=== PATIENT | male | born 1985 | race Caucasian/White ===

== ENCOUNTER → 2016-09-22 | Outpatient (CLI) | payer OTHER | LOC: LABWHC1 16:16 | PROVIDERS: ATTEND Psychiatry & Neurology Psychiatry | DX: F31.31 Bipolar disorder, current episode depressed, mild (principal) | CPT/HCPCS: 36415; 80164; 84450; 84460 ==

== ENCOUNTER 2016-09-26 00:51 | Inpatient (IN) | payer OTHER ==
[2016-09-26] MEDS ORDERED: SODIUM CHLORIDE 0.9% 1,000 ML IV STA (01:34)
[2016-09-26] MEDS ORDERED: ACTIVATED CHARCOAL 50 GM/240 ML BOTTLE PO STA (01:36)
[2016-09-26] MEDS ORDERED: ACETYLCYSTEINE 6,000 MG/30 ML VIAL PO ONE (01:36)
[2016-09-26 02:03] LABS: Basophils % (A) 0 %; CH 31.5; CHCM 33.5; Eosinophils # (A) 0.2 k/uL (0-0.7); Eosinophils % (A) 4 %; HCT 48.1 % (39.0-53.0); HDW 2.24; HGB 15.5 gm/dL (13.0-17.5); Luc # (Auto) 0.21; Luc % (Auto) 3; Lymphocytes # (A) 2.8 k/uL (1.0-4.8); Lymphocytes % (A) 42 %; MCH 30.4 pg (25.0-35.0); MCHC 32.2 g/dL (31.0-37.0); MCV 94.5 fL (80.0-100.0); Mean Platelet Volume 7.3; Monocytes # (A) 0.4 k/uL (0-1.0); Monocytes % (A) 6 %; Neutrophils # (A) 2.9 k/uL (1.3-7.7); Neutrophils % (A) 44 %; RBC 5.09 m/uL (4.30-5.90); RDW 13.4 % (11.5-15.5); WBC 6.6 k/uL (3.8-10.6); WBC (Perox) 6.58
[2016-09-26 02:13] LABS: INR 1.2 (<1.1); Prothrombin Time 11.5 sec (9.0-12.0)
[2016-09-26 02:14] LABS: ALT 35 U/L (21-72); AST 29 U/L (17-59); Alcohol 12 mg/dL; Alkaline Phosphatase 32 U/L (38-126); Anion Gap 12 mmol/L; Blood Urea Nitrogen 22 mg/dL (9-20); Calcium 9.1 mg/dL (8.4-10.2); Carbon Dioxide 22 mmol/L (22-30); Chloride 108 mmol/L (98-107); Glucose 88 mg/dL (74-99); Non-African American GFR(MDRD) >60 (>60 ml/min/1.73 sqM); Potassium 4.3 mmol/L (3.5-5.1); Salicylate <1.0 mg/dL; Sodium 142 mmol/L (137-145); Total Bilirubin 0.3 mg/dL (0.2-1.3); Total Protein 6.6 g/dL (6.3-8.2)
[2016-09-26] MEDS ORDERED: ONDANSETRON 4 MG/2 ML VIAL IVP STA ×2 (02:47→04:50)
[2016-09-26] MEDS ORDERED: NALOXONE 0.4 MG/ML 1 ML VIAL IV PRN (03:29)
--- NOTE | 2016-09-26 03:36 | ED ---
Psych HPI - General Chief Complaint: Psychiatric Symptoms Stated Complaint: Mental Health Time Seen by Provider: 09/26/16 00:52 Source: patient Mode of arrival: EMS Limitations: no limitations - History of Present Illness Initial Comments: This patient is 31-year-old man who comes in to be evaluated after he had attempted to overdose. Patient is brought by friend who states that she noted a Facebook posting which indicated some suicidal thoughts. The patient states that he had taken about 100 of the 500 mg Tylenol tablets right around 10:30. The patient denies any abdominal or gastrointestinal symptoms. MD Complaint: suicidal ideation, feels depressed -: hour(s) Associated Psychiatric Symptoms: depression, suicidal ideation Quality: getting worse Worsens With: alcohol Context: recent alcohol abuse, significant life stressor Associated Symptoms: denies other symptoms - Related Data Home Medications Medication Instructions Recorded Confirmed Acetaminophen Tab [Tylenol] 650 mg PO Q4H PRN 12/22/14 12/22/14 Mag Hydrox/Al Hydrox/Simeth 7,200 mg PO Q4H PRN 12/22/14 12/22/14 [Maalox] Magnesium Hydroxide [Milk of 2,400 mg PO DAILY PRN 12/22/14 12/22/14 Magnesia Concentrate] Previous Rx's Medication Instructions Recorded Divalproex ER [Depakote ER] 1,000 mg PO HS #30 tab.er.24h 12/24/14 FLUoxetine HCL [PROzac] 20 mg PO DAILY #30 cap 12/24/14 Paliperidone [Invega] 9 mg PO DAILY #30 tab.er.24 12/24/14 clonazePAM [KlonoPIN] 0.25 mg PO HS #30 tab 12/24/14 Allergies Allergy/AdvReac Type Severity Reaction Status Date / Time hydromorphone HCl Allergy Rash/Hives Verified 09/26/16 01:21 [From Dilaudid] morphine Allergy Rash/Hives Verified 09/26/16 01:21 Review of Systems ROS Statement: Those systems with pertinent positive or pertinent negative responses have been documented in the HPI. ROS Other: All systems not noted in ROS Statement are negative. Constitutional: Denies: fever, chills Eyes: Denies: vision change Respiratory: Denies: cough, dyspnea Cardiovascular: Denies: chest pain, edema, syncope Gastrointestinal: Denies: abdominal pain, nausea, vomiting Genitourinary: Denies: dysuria, hematuria Musculoskeletal: Denies: back pain Skin: Denies: rash Neurological: Denies: headache, weakness, numbness Psychiatric: Reports: depression, suicidal thoughts Past Medical History Past Medical History: No Reported History History of Any Multi-Drug Resistant Organisms: None Reported, MRSA Date of last positivie culture/infection: 2012 MDRO Source:: Bilaterial great toes Past Surgical History: Orthopedic Surgery Additional Past Surgical History / Comment(s): Left elbow repair 2003 Past Anesthesia/Blood Transfusion Reactions: No Reported Reaction Past Psychological History: Anxiety, Depression, Schizophrenia Smoking Status: Former smoker Past Alcohol Use History: None Reported Past Drug Use History: None Reported - Past Family History Mother Family Medical History: Cancer General Exam Limitations: no limitations General appearance: alert, in no apparent distress Head exam: Present: atraumatic, normocephalic Eye exam: Present: normal appearance. Absent: scleral icterus, conjunctival injection ENT exam: Present: normal oropharynx Neck exam: Present: normal inspection Respiratory exam: Present: normal lung sounds bilaterally. Absent: respiratory distress, wheezes, rales, rhonchi, stridor Cardiovascular Exam: Present: regular rate, normal rhythm, normal heart sounds GI/Abdominal exam: Present: soft. Absent: distended, tenderness, guarding, rebound, rigid, normal bowel sounds Extremities exam: Present: normal inspection, normal capillary refill. Absent: pedal edema, calf tenderness Neurological exam: Present: alert Psychiatric exam: Present: normal affect, normal mood, suicidal ideation. Absent: anxious, flat affect, manic, homicidal ideation Skin exam: Present: warm, dry, intact, normal color. Absent: rash Course Vital Signs 09/26/16 09/26/16 09/26/16 01:15 02:25 02:32 Temperature 97.2 F L Pulse Rate 88 86 Respiratory 18 18 20 Rate Blood Pressure 118/53 123/56 O2 Sat by Pulse 95 98 Oximetry 09/26/16 09/26/16 09/26/16 04:27 04:59 05:00 Temperature 97.6 F Pulse Rate 73 61 77 Respiratory 16 19 Rate Blood Pressure 107/51 O2 Sat by Pulse 97 Oximetry Medical Decision Making - Medical Decision Making Patient is 31-year-old man who presents approximately 2 hours after taking toxic level of Tylenol. Patient was given empiric treatment with N- acetylcysteine based on the ingestion level. Also dose of activated charcoal. After taking this she did develop nausea and vomiting, and the acetylcysteine was given IV. Patient be admitted for further treatment. I discussed the case with both the admitting physician and the board of directors. - Lab Data Result diagrams: 09/26/16 06:09 09/26/16 06:09 Lab Results 09/26/16 09/26/16 09/26/16 Range/Units 01:43 01:43 01:43 WBC 6.6 (3.8-10.6) k/uL RBC 5.09 (4.30-5.90) m/uL Hgb 15.5 (13.0-17.5) gm/dL Hct 48.1 (39.0-53.0) % MCV 94.5 (80.0-100.0) fL MCH 30.4 (25.0-35.0) pg MCHC 32.2 (31.0-37.0) g/dL RDW 13.4 (11.5-15.5) % Plt Count 158 (150-450) k/uL Neutrophils % 44 % Lymphocytes % 42 % Monocytes % 6 % Eosinophils % 4 % Basophils % 0 % Neutrophils # 2.9 (1.3-7.7) k/uL Lymphocytes # 2.8 (1.0-4.8) k/uL Monocytes # 0.4 (0-1.0) k/uL Eosinophils # 0.2 (0-0.7) k/uL Basophils # 0.0 (0-0.2) k/uL PT 11.5 (9.0-12.0) sec INR 1.2 (<1.1) Sodium 142 (137-145) mmol/L Potassium 4.3 (3.5-5.1) mmol/L Chloride 108 H (98-107) mmol/L Carbon Dioxide 22 (22-30) mmol/L Anion Gap 12 mmol/L BUN 22 H (9-20) mg/dL Creatinine 1.00 (0.66-1.25) mg/dL Est GFR (MDRD) Af Amer >60 (>60 ml/min/1.73 sqM) Est GFR (MDRD) Non-Af >60 (>60 ml/min/1.73 sqM) Glucose 88 (74-99) mg/dL Calcium 9.1 (8.4-10.2) mg/dL Total Bilirubin 0.3 (0.2-1.3) mg/dL AST 29 (17-59) U/L ALT 35 (21-72) U/L Alkaline Phosphatase 32 L (38-126) U/L Total Protein 6.6 (6.3-8.2) g/dL Albumin 3.8 (3.5-5.0) g/dL Salicylates <1.0 mg/dL Acetaminophen 152.0 H* ug/mL Serum Alcohol 12 mg/dL - EKG Data -: EKG Interpreted by Me EKG shows normal: sinus rhythm, axis (Normal), intervals (Normal), QRS complexes (Normal), ST-T waves (Home) Rate: normal (Rate 85 bpm) Critical Care Time Critical Care Time: Yes (35 minutes) Disposition Clinical Impression: Attempted suicide, Tylenol overdose Disposition: ADMITTED IP TO THIS [facility] Condition: Serious
[2016-09-26] MEDS ORDERED: ACETYLCYSTEINE IV ONE ×4 (04:00→09:30)
[2016-09-26] MEDS ORDERED: DEXTROSE 5% IV ONE ×4 (04:00→09:30)
[2016-09-26] MEDS ORDERED: WATER IV ONE ×4 (04:00→09:30)
[2016-09-26] MEDS ORDERED: ONDANSETRON 4 MG/2 ML VIAL IVP PRN (04:50)
[2016-09-26 05:07] LABS: Glucose,Whole Blood 121 mg/dL (75-99)
[2016-09-26 05:17] VITALS: BMI 28.4
[2016-09-26] MEDS: SODIUM CHLORIDE 0.9% 1,000 ML IV SCH ×3 (05:23→20:25)
[2016-09-26 06:25] LABS: Basophils % (A) 1 %; CH 31.4; Eosinophils # (A) 0.1 k/uL (0-0.7); Eosinophils % (A) 2 %; HCT 42.8 % (39.0-53.0); HDW 2.33; HGB 14.2 gm/dL (13.0-17.5); Luc # (Auto) 0.22; Luc % (Auto) 4; Lymphocytes # (A) 3.2 k/uL (1.0-4.8); Lymphocytes % (A) 53 %; MCH 31.7 pg (25.0-35.0); MCHC 33.2 g/dL (31.0-37.0); MCV 95.5 fL (80.0-100.0); Mean Platelet Volume 8.2; Monocytes # (A) 0.3 k/uL (0-1.0); Monocytes % (A) 5 %; Neutrophils # (A) 2.2 k/uL (1.3-7.7); Neutrophils % (A) 36 %; RBC 4.48 m/uL (4.30-5.90); RDW 13.4 % (11.5-15.5); WBC 6.1 k/uL (3.8-10.6); WBC (Perox) 6.32
[2016-09-26 06:35] LABS: Anion Gap 16 mmol/L; Blood Urea Nitrogen 17 mg/dL (9-20); Calcium 7.9 mg/dL (8.4-10.2); Carbon Dioxide 20 mmol/L (22-30); Chloride 109 mmol/L (98-107); Glucose 94 mg/dL (74-99); Magnesium 1.9 mg/dL (1.6-2.3); Non-African American GFR(MDRD) >60 (>60 ml/min/1.73 sqM); Phosphorous 3.3 mg/dL (2.5-4.5); Sodium 145 mmol/L (137-145)
[2016-09-26] MEDS: PANTOPRAZOLE 40 MG/10 ML VIAL IV SCH (09:17)
[2016-09-26] MEDS: FLUoxetine HCL 20 MG CAP PO SCH (09:17)
--- NOTE | 2016-09-26 11:35 | P.CNPUL ---
History of Present Illness Consult date: 09/26/16 Requesting physician: Edson Dunn Reason for consult: other (Acute acetaminophen overdose/toxicity.) Chief complaint: Tylenol overdose History of present illness: This is a 31-year-old white male with history of depression, and multiple attempts of suicide in the past, multiple admissions to the psychiatric pur[facility], patient posted on his Facebook that he has taken significant amount of Tylenol roughly about 100 tablets of 500 mg around 10:30 PM, and he was trying to commit suicide. Patient was brought in by his friend who noted the Facebook posting, and felt that the patient was clearly suicidal. Upon arrival to the ER , patient had no evidence of abdominal pain, slightly nauseated, and no other GI symptoms. His acetaminophen level was 152, patient received activated charcoal were in he developed nausea and vomiting, and he was started on an acetylcysteine as recommended by the poison control following the protocol. Patient was then admitted to the ICU, and I saw him on consultation. Presently the patient is doing well, denies any specific complaints, follow-up acetaminophen level this morning was 189.6, his liver enzymes upon presentation were relatively normal. Follow-up liver profile is pending. Drug screen otherwise was negative his serum alcohol level was 12. Valproic acid level was subtherapeutic. Presently the patient denies any headaches, no blurred vision, no dizziness. No chest pain no cough no wheezing no nausea no vomiting no abdominal pain no melena no hematemesis no dysuria and no frequency no urgency. Patient clearly stated to me that he is quite depressed, and he will likely do it again. Patient will be placed on suicidal precautions, and we'll arrange for psychiatric consultation. Review of Systems 14 point review of systems were obtained. Refer to pertinent positives and negatives as per HPI Past Medical History Past Medical History: No Reported History Additional Past Medical History / Comment(s): History of depression History of Any Multi-Drug Resistant Organisms: None Reported, MRSA Date of last positivie culture/infection: 2012 MDRO Source:: Bilaterial great toes Past Surgical History: Orthopedic Surgery Additional Past Surgical History / Comment(s): Left elbow repair 2003 Past Anesthesia/Blood Transfusion Reactions: No Reported Reaction Past Psychological History: Anxiety, Depression, Schizophrenia Smoking Status: Former smoker Past Alcohol Use History: None Reported Past Drug Use History: None Reported - Past Family History Mother Family Medical History: Cancer Medications and Allergies Home Medications Medication Instructions Recorded Confirmed Type Acetaminophen Tab [Tylenol] 650 mg PO Q4H PRN 12/22/14 12/22/14 History Mag Hydrox/Al Hydrox/Simeth 7,200 mg PO Q4H PRN 12/22/14 12/22/14 History [Maalox] Magnesium Hydroxide [Milk of 2,400 mg PO DAILY PRN 12/22/14 12/22/14 History Magnesia Concentrate] Allergies Allergy/AdvReac Type Severity Reaction Status Date / Time hydromorphone HCl Allergy Rash/Hives Verified 09/26/16 01:21 [From Dilaudid] morphine Allergy Rash/Hives Verified 09/26/16 01:21 Physical Exam Vitals: Vital Signs Temp Pulse Resp BP Pulse Ox 09/26/16 11:00 61 17 102/52 95 09/26/16 10:00 61 25 H 102/71 09/26/16 09:30 58 L 21 102/71 91 L 09/26/16 09:00 55 L 19 102/71 94 L 09/26/16 08:30 59 L 12 112/62 95 09/26/16 08:00 58 L 12 118/64 96 09/26/16 07:40 97.6 F 55 L 24 118/64 98 09/26/16 07:20 54 L 20 118/64 99 09/26/16 07:00 82 22 140/79 09/26/16 06:40 63 25 H 140/79 96 09/26/16 06:20 63 29 H 140/79 97 09/26/16 06:00 90 25 H 123/66 97 09/26/16 05:40 63 21 123/66 98 09/26/16 05:20 43 L 20 123/66 98 09/26/16 05:10 97.7 F 67 34 H 123/66 98 09/26/16 05:00 77 19 09/26/16 04:59 61 09/26/16 04:27 97.6 F 73 16 107/51 97 Intake and Output 09/25/16 09/26/16 09/26/16 22:59 06:59 14:59 Intake Total 250 950 Output Total 400 Balance 250 550 Intake: IV 250 750 Dextrose 5% in Water 500 250 ml @ 125 mls/hr IV . Q4H11M ONE with Acetylcysteine IV 4,200 mg Rx#:[id number] Sodium Chloride 0.9% 1, 250 500 000 ml @ 125 mls/hr IV . Q8H [facility] Rx#:[id number] Intake, IV Titration 200 Amount Acetylcysteine IV 12,600 200 mg In Dextrose 5% in Water 200 ml @ 200 mls/hr IV ONCE ONE Rx#: [id number] Output: Urine 400 Other: Voiding Method Urinal Toilet Urinal Weight 87.3 kg 87.3 kg Patient Weight 09/27/16 06:59 Weight 87.3 kg Physical Exam: Revealed a 31-year-old in no distress HEENT:[Neck is supple.] [No neck masses.] [No thyromegaly.] [No JVD.] Chest: [Clear throughout, no crackles, no rhonchi, no wheezes.] Cardiac Exam: [Normal S1 and S2, no S3 gallop, no murmur.] Abdomen: [Soft, nontender, no megaly, no rebound, no guarding, normal bowel sounds.] Extremities: [No clubbing, no edema, no cyanosis.] Neurological Exam: [No focal neurologic deficit.] Patient clearly stated that he is depressed and doesn't mind psychiatric evaluation. Results - Laboratory Findings CBC and BMP: 09/26/16 06:09 09/26/16 06:09 PT/INR, D-dimer PT 11.5 sec (9.0-12.0) 09/26/16 01:43 INR 1.2 (<1.1) 09/26/16 01:43 Abnormal lab findings: Abnormal Labs 09/26/16 09/26/16 09/26/16 05:04 06:09 06:09 Plt Count 138 L Chloride 109 H Carbon Dioxide 20 L POC Glucose (mg/dL) 121 H Calcium 7.9 L Acetaminophen 09/26/16 06:09 Plt Count Chloride Carbon Dioxide POC Glucose (mg/dL) Calcium Acetaminophen 189.6 H* Assessment and Plan Plan: Impression: 1 acute acetaminophen toxicity secondary to suicidal attempt. 2 major affective disorder and suicidal ideations. Recommendation: We'll continue treatment as per protocol, patient is presently on an acetylcysteine IV infusion, he will remain on suicidal precautions, and we 'll arrange for psychiatric evaluation on the patient. Once the patient is medically cleared, I would recommend referring the patient to psychiatric admission. At this point we'll continue to follow the ICU and continue to follow precautions for potential suicidal attempts Time with Patient: Greater than 30
[2016-09-26 13:43] LABS: Acetaminophen 51.8 ug/mL
--- NOTE | 2016-09-26 16:47 | CONS ---
DATE OF CONSULTATION: REASON FOR CONSULTATION: Status post suicidal attempt. HISTORY OF PRESENT ILLNESS: Patient is 31 single male with history of bipolar disorder and had multiple suicidal attempts in the past, presented to the ER after he took overdose of Tylenol. Patient posted on his Facebook that he will try to commit suicide and when his friend noted this on the Facebook he wanted his house and brought the patient in. When the patient did arrive to the ER, he acetaminophen level was 152. Patient was transferred to the ICU. I saw the patient and his parents all at his bedside. They stated that the patient has been severely depressed for the last couple of months, even he did miss his appointment to see his outpatient psychiatrist Dr. Castro. He was seen last time in June 2016. His current psychotropic medications are Prozac 40 mg daily and Depakote extended-release 1500 mg at bedtime. Today patient stated that he is willing to be admitted to the inpatient unit, but he was concerned about being in our facility, as he claims that he did have bad experience during his last hospitalization in 2013. When I did ask the patient if he has been compliant with medication, he said yes but I am not sure about my diagnosis. At the time of his admission, Depakote level was 21.2 and it does show that he has been noncompliant with medication as prescribed. His serum alcohol 12. His urine drug screen is negative. Today patient complaining of feeling hopeless, helpless, feeling suicidal with different plans, feeling worthless and useless, poor concentration, also, he did experience high anxiety. According to him he has been drinking to "help my depression." Past Psychiatric History: Patient has multiple suicidal attempts in the past with multiple inpatient psych hospitalizations. His last inpatient psych hospitalization was in 2013. His previous diagnosis is schizoaffective disorder, bipolar type, versus polysubstance abuse including alcohol and cannabis and opiates. Patient has been on the same combination of medication for the last year and as I mentioned before, he has been seen by Dr. Castro. Substance abuse history: Currently patient did admit that he has been drinking but according to him, just when he is depressed. He denied any withdrawal seizure or DT. H urine drug screen is negative. ALLERGY TO HYDROMORPHONE AND MORPHINE. Brief social history: Patient was raised by both parents. He is the youngest of 4. He has never been . As I mentioned before, he has long history of mental illness with several psychiatric hospitalization. There is no children. He denied any current legal program. MENTAL STATUS EXAMINATION: Patient is alert, attentive, he stated, feeling hopeless, helpless, with suicidal ideation, however, he did not have any specific plan. He denied having any hallucination. There is no sign of psychosis. There is no sign of rojelio. He was having difficulty to agree to be transferred to our unit. However, he stated that if it is not possible to be transferred to outside unit he will be willing to come to [facility]. There is no aggression or agitation. DIAGNOSES: 1. Bipolar disorder, depressed, rule out schizoaffective disorder, depressed type. 2. Alcohol use disorder. PLAN: I do recommend to transfer the patient to inpatient mental unit, when he is medically cleared.
[2016-09-26] MEDS: clonazePAM 0.5 MG TAB PO SCH (20:24)
[2016-09-26] MEDS: DIVALPROEX ER 500 MG TAB.ER.24H PO SCH (20:24)
[2016-09-27] MEDS: SODIUM CHLORIDE 0.9% 1,000 ML IV SCH ×3 (03:02→20:46)
[2016-09-27 06:43] VITALS: RESP 16
[2016-09-27 09:44] LABS: Basophils % (A) 0 %; CH 31.1; CHCM 32.4; Eosinophils # (A) 0.1 k/uL (0-0.7); Eosinophils % (A) 3 %; HCT 40.8 % (39.0-53.0); HDW 2.33; HGB 13.5 gm/dL (13.0-17.5); Luc # (Auto) 0.09; Luc % (Auto) 2; Lymphocytes # (A) 2.6 k/uL (1.0-4.8); Lymphocytes % (A) 55 %; MCHC 33.2 g/dL (31.0-37.0); MCV 96.5 fL (80.0-100.0); Mean Platelet Volume 7.7; Monocytes # (A) 0.2 k/uL (0-1.0); Monocytes % (A) 5 %; Neutrophils # (A) 1.6 k/uL (1.3-7.7); Neutrophils % (A) 35 %; RBC 4.23 m/uL (4.30-5.90); RDW 13.4 % (11.5-15.5); WBC 4.6 k/uL (3.8-10.6); WBC (Perox) 4.92
[2016-09-27 10:01] LABS: ALT 29 U/L (21-72); AST 20 U/L (17-59); Acetaminophen <10.0 ug/mL; Alkaline Phosphatase <20 U/L (38-126); Anion Gap 8 mmol/L; Blood Urea Nitrogen 13 mg/dL (9-20); Calcium 8.2 mg/dL (8.4-10.2); Carbon Dioxide 23 mmol/L (22-30); Chloride 112 mmol/L (98-107); Glucose 98 mg/dL (74-99); Magnesium 1.9 mg/dL (1.6-2.3); Non-African American GFR(MDRD) >60 (>60 ml/min/1.73 sqM); Phosphorous 3.2 mg/dL (2.5-4.5); Potassium 4.3 mmol/L (3.5-5.1); Sodium 143 mmol/L (137-145); Total Bilirubin 0.4 mg/dL (0.2-1.3); Total Protein 5.4 g/dL (6.3-8.2)
[2016-09-27] MEDS: PANTOPRAZOLE 40 MG/10 ML VIAL IV SCH (10:16)
[2016-09-27] MEDS: FLUoxetine HCL 20 MG CAP PO SCH (10:16)
[2016-09-27 10:28] LABS: Manual Review Performed; RBC Morphology Normal
--- NOTE | 2016-09-27 11:54 | HP ---
DATE OF ADMISSION: Chief complaint is Tylenol overdose. HISTORY OF PRESENT ILLNESS: Mr. Jaimes is a 31-year-old male with history of depression and approximately about 6 prior suicide attempts and multiple admissions to the inpatient psychiatric. Was brought to the hospital for acute Tylenol overdose. Apparently, patient posted on his Facebook page that he has taken a significant amount of Tylenol roughly about 100 tablet of 500 mg around 10:30 p.m. and he was trying to commit suicide. Patient was brought in by his friend. Patient was given activated charcoal and he threw up most of his pills. Patient was started on ( ) recommended by the Poison Control. His acetaminophen level was 152 on admission. Patient was admitted to the hospital in the ICU. Drug screen, otherwise, was negative except his alcohol was 12. Currently, patient denied any complaints of chest pain or short of breath. No headache or dizziness or lightheadedness. The patient denied any complaints of abdominal pain. Acetaminophen this morning is 189.6. No fever. No chills. Patient was seen by Psychiatry and recommend inpatient psychiatric admission. REVIEW OF SYSTEMS: CONSTITUTIONAL: No fever. No chills. RESPIRATORY: No cough or sputum production. CARDIOVASCULAR: No chest pain or short of breath. ABDOMEN: No nausea, vomiting, or abdominal pain. GENITOURINARY: Negative. ENDOCRINE: Negative. PSYCHIATRY: Negative. SKIN: Negative. All other 14-point review of systems negative except as above. PAST MEDICAL HISTORY: Depression, history of MRSA. PAST SURGICAL HISTORY: Left elbow repair in 2003. PSYCHOSOCIAL HISTORY: Anxiety, depression, schizophrenia. SOCIAL HISTORY: Patient is a former smoker. Currently drinks alcohol daily. Denied any drugs or IVDU. FAMILY HISTORY: Mother had cancer. HOME MEDICATIONS: 1. Tylenol. 2. Maalox. 3. Milk of Magnesia. ALLERGIES: DILAUDID and MORPHINE. PHYSICAL EXAMINATION: A 31-year-old male lying in the bed comfortably, awake, alert, oriented, x3. Appears to be in no apparent distress. VITALS: Blood pressure is 105/53, pulse is 59, respirations 18, temperature afebrile, pulse ox 97% on room air. HEENT: Atraumatic, normocephalic. Neck is supple with no JVD. INJURY PREVENTION COORDINATOR EXAM: S1, S2 heard. No murmurs, no gallop, no rub. LUNGS: Bilateral air entry is present. No wheezing. No crackles. Abdomen is soft, nontender. Bowel sounds were heard. INJURY PREVENTION COORDINATOR: Awake, alert, oriented x3. No focal neurologic deficits. Cranial nerves grossly intact. EXTREMITIES: No edema. No clubbing or cyanosis. PSYCHIATRIC: Cooperative. Denied any suicidal ideation now. LABORATORY DATA: WBC 6.8, hemoglobin 14.5, platelets 158. INR 1.2. Sodium 142, potassium 4.3, chloride 108, bicarb is 22, BUN 32, creatinine 1.0, calcium 9.1. AST is 29, ALT is 35. Alk phos 32, acetaminophen is 152, increased to 189.6 and currently coming down 51.8. Valproic acid level is 21.2 within normal limits. CA Marker level is 12, UDS is negative. EKG normal sinus rhythm. ASSESSMENT AND PLAN: 1. Acute suicide attempt with Tylenol pill overdose. 2. History of multiple suicide attempts in the past. 3. Alcohol abuse. 4. Depression. DISCUSSION AND PLAN: Patient will be continued on ( ) as per Poison Control protocol. Continue with IV fluids and continue to monitor acetaminophen level until level is less than 10. Will continue with the suicide precautions and bedside sitter. Psychiatry has been consulted. Recommend inpatient psychiatric admission. Will follow acetaminophen level and once the level comes down below 10, patient is stable medically to be transferred to inpatient psychiatric unit. Will continue to follow closely. Further recommendations based on the clinical course.
[2016-09-27] MEDS: DIVALPROEX ER 500 MG TAB.ER.24H PO SCH (20:40)
[2016-09-27] MEDS: clonazePAM 0.5 MG TAB PO SCH (20:41)
[2016-09-28 07:32] VITALS: PULSE 46; TEMP 96.8
[2016-09-28] MEDS: FLUoxetine HCL 20 MG CAP PO SCH (08:29)
[2016-09-28] MEDS: PANTOPRAZOLE 40 MG/10 ML VIAL IV SCH (08:29)
[2016-09-28 09:22] LABS: Basophils % (A) 0 %; CH 31.2; Eosinophils # (A) 0.3 k/uL (0-0.7); Eosinophils % (A) 5 %; HCT 42.5 % (39.0-53.0); HDW 2.33; HGB 13.7 gm/dL (13.0-17.5); Luc # (Auto) 0.13; Luc % (Auto) 2; Lymphocytes # (A) 2.7 k/uL (1.0-4.8); Lymphocytes % (A) 46 %; MCH 30.7 pg (25.0-35.0); MCHC 32.3 g/dL (31.0-37.0); MCV 94.9 fL (80.0-100.0); Mean Platelet Volume 7.4; Monocytes # (A) 0.3 k/uL (0-1.0); Monocytes % (A) 5 %; Neutrophils # (A) 2.4 k/uL (1.3-7.7); Neutrophils % (A) 42 %; RBC 4.48 m/uL (4.30-5.90); RDW 13.2 % (11.5-15.5); WBC 5.8 k/uL (3.8-10.6); WBC (Perox) 6.05
[2016-09-28] MEDS ORDERED: SODIUM CHLORIDE 0.9% 500 ML IV ONE (12:49)
--- NOTE | 2016-09-28 13:01 | PN ---
DATE OF SERVICE: 09/27/2016 INTERVAL HISTORY: Mr. Jaimes is a 31-year-old male with known history of depression and approximately about six prior suicide attempts and depression, who came to the hospital with Tylenol overdose. Apparently, the patient posted on his Facebook page that he had taken a significant amount of Tylenol to commit suicide and was brought to the hospital by his friend. Currently Tylenol level came down to 10 today. The patient does have intermittent abdominal pain but mostly subsided. No fever, no chills. No acute overnight issues. Patient is tolerating p.o. diet. No nausea or vomiting noted. No diarrhea. REVIEW OF SYSTEMS: CONSTITUTIONAL: No fever. No chills. RESPIRATORY: No cough or sputum production. CARDIOVASCULAR: No chest pain or shortness of breath. ABDOMEN: No nausea or vomiting, abdominal pain. GENITOURINARY: Negative. ENDOCRINE: Negative. PSYCHIATRY: Negative. SKIN: Negative. MUSCULOSKELETAL: Negative. All other fourteen-point review of systems negative except as above. CURRENT MEDICATIONS: Reviewed. PHYSICAL EXAMINATION: 31-year-old male lying in the bed comfortably. Awake, alert, oriented times three. Appears to be in no apparent distress. VITALS: Blood pressure is 107/46. Pulse 77. Respiratory rate 16. Temperature afebrile. Pulse ox 95% on room air. HEENT: Atraumatic. Neck is supple. No JVD. CVS: S1, S2 heard. No murmurs or gallop, no rub. LUNGS: Bilateral air entry is present. No wheezing. No crackles. Nonlabored breathing. ABDOMEN: Soft, nontender, bowel sounds present. CENTRAL NERVOUS SYSTEM: Awake, alert, oriented x3. No focal deficits. EXTREMITIES: No edema. Pulses palpable bilaterally. No clubbing or cyanosis. PSYCHIATRIC: Cooperative. Denied any suicide ideation now. LABORATORY DATA: WBC 4.6, hemoglobin 13.5, platelets 123, sodium 143, potassium 4.3, chloride 112, bicarb ( ), BUN 13, creatinine 0.81. Calcium 8.2, albumin 2.9, acetaminophen level came down to less than 10, initially was 189.6. IMPRESSION: 1. Acute drug overdose with Tylenol, level came down to less than 10. 2. Acute suicide attempt with Tylenol pills overdose. 3. History of multiple suicidal attempts in the past. 4. Major depression. 5. Alcohol abuse history. DISCUSSION AND PLAN: The patient will be continued on the current management. The patient is tolerating p.o. diet. Will hold fluids at this time and encourage p.o. intake. The patient will be continued on Prozac and Depakote. Psychiatry has seen the patient and recommended inpatient psychiatric admission, the patient wants to go to ( ) specialty at Psychiatry at [facility]. Social work and bilingual patient support caseworker will be consulted and arrange for psych transfer tomorrow. Otherwise, the patient is medically stable to be discharged.
--- NOTE | 2016-09-28 13:59 | DS ---
DATE OF ADMISSION: 09/26/2016 DATE OF DISCHARGE: 09/28/2016 DISCHARGE DIAGNOSES: 1. Acute suicide attempt with Tylenol pill overdose. 2. Elevated acetaminophen level. Currently, came down to less than 10. 3. History of multiple suicide attempts x6. 4. Alcohol abuse. 5. Depression and anxiety. HOSPITAL COURSE: Mr. Jaimes is a 31-year-old male with a known history of depression of approximately about 6 prior suicide attempts and multiple admissions to the inpatient psychiatric unit, was brought to the hospital after he took 100 tablets of Tylenol pills each 500 mg and posted a message on [employer]VERSE. His friend found it and brought him to the hospital. Patient had emesis in the hospital and three up most of the tablets. His Tylenol level went up to 189.5, currently patient was given acetylcysteine as per toxicologic recommendations. Currently acetaminophen level came down to less than 10. No abdominal pain. Liver enzymes are not elevated. Otherwise, patient is tolerating diet and medically stable to be discharged to inpatient psychiatric unit as per Psychiatry recommendations. Otherwise, the patient is stable to be discharged. DISCHARGE PHYSICAL EXAMINATION: A 31-year-old male, lying in bed comfortably. Awake, alert x3, appears to be in no apparent distress. VITALS: Blood pressure is 86/40, pulse is 46, respirations 16, temperature afebrile, pulse ox 96% on room air. Patient was given a liter bolus of fluids. Laboratory data reviewed. DISCHARGE PHYSICAL EXAMINATION: Awake, alert, oriented x3. No focal deficit. EXTREMITIES: No edema. Pulses palpable bilaterally. No clubbing or cyanosis. PSYCHIATRIC: Cooperative. Discharge medications include: 1. Depakote ER 1500 mg p.o. at bedtime. 2. Prozac 40 mg p.o. daily. The patient will be transferred to inpatient psychiatric unit. Activity as tolerated and regular diet and follow with the primary physician and the mental health clinic upon discharge.
[2016-09-28 14:07] VITALS: BP 108/74
--- NOTE | 2016-09-28 14:38 | P.CN ---
Psychiatric Consult - . Consult date: 09/28/16 Consult:: IDENTIFYING DATA: Mr. Jaimes is a 31-year-old single male who presented to the emergency room following an intentional overdose of Tylenol and Motrin. HISTORY OF PRESENT ILLNESS: He stated that she intentionally he took approximately 100 tablets of Tylenol (500 MG) at approximately 10:30 the night of admission with the intent to end his life. A friend of his called EMS because he had apparently posted his thoughts and actions on Facebook. He alleged that he had no recollection of having posted his depression and suicidal thoughts on Facebook. He talked about feeling depressed and anxious. He had been thinking about suicide "for couple days" prior to the overdose. He denied a specific stress, disappointment or trigger to the changes in her mood and the suicidal ideation. He stated that he quit his job with [email or web address] "a couple weeks ago" because he was feeling "more depressed." He described feeling hopeless, helpless and worthless. He denied psychotic symptoms such as auditory or visual hallucinations, ideas reference, thought insertion, thought broadcasting or thought control. He described feeling anxious and having periods of increased anxiety that lasted for an extended period of time and consistent with a panic attack. He alleged that he "slipped " on alcohol; consuming "couple beers" when he took the overdose. He alleged that he has been "sober" with the exception of "a couple slips" since May 2016. He denied recent use of cocaine, heroin or other drugs of abuse. His urine drug screen on presentation to the ED was negative for drugs of abuse. His serum alcohol level was 12. His serum acetaminophen level peaked on 2016 at 6:09 at 189.6. During the assessment he reported he stated that he does not want to go to [facility]. He stated that he's been fair several times in his final benefit. He requested to be transferred to another psychiatric facility or referred to a substance abuse treatment program. PAST PSYCHIATRIC HISTORY: He has a history of childhood onset conduct disorder and treated with psychostimulant medications beginning around age of "[age]." He has had 5 prior admissions to this psychiatric unit. His first was in January 2010 when he presented with suicidal and homicidal ideation and purported auditory hallucinations where he was hearing "the axle of "in the context of a breakup of an interpersonal relationship. His discharge diagnosis included psychotic disorder not otherwise specified and history of polysubstance abuse. The last was in March 2010 when he presented with agitation, irritability and depression and in relationship to break up of a personal relationship. The admission history notes that he has a history of polysubstance abuse including alcohol, cannabis and opiates. He is had several suicide attempts. His received outpatient mental health services through [facility] and [facility] outpatient [facility] clinic. He last received mental health services "sometime last year". He denied current prescription of psychotropic medications. PAST MEDICAL HISTORY: He has no major medical illness season SUBSTANCE USE HISTORY: He was guarded about his history of substance use. As mentioned above, he alleged that he has been abstinent from alcohol "except for a few slips". He denied recent use of cocaine. He denied participation in a residential substance abuse treatment program. FAMILY PSYCHIATRIC/SUBSTANCE USE HISTORY: He denied a family history of mental health or substance use problems. SOCIAL HISTORY: His born and raised in [place] by an intact family his youngest in a sibship of 4 children. He went to regular school until the eighth grade and then was homeschools. The option for home schooling appear to be related to behavioral problems including aggression and violence. He had been suspended and expelled from school. The stated he graduated from high school. He is currently unemployed after quitting his job with the [employer] He is single and has no children. He lives with his parents. MENTAL STATUS EXAM: He presented as a casually groomed 31-year-old male who looked older than his stated age. He was sitting comfortably on his medical bed. He maintained eye contact and appeared to attend to the interview. He had no distinguishing features or prominent physical abnormalities. He had a depressed facial expression. He was alert and oriented to person, place and time. Showed no abnormality of psychomotor activity. His speech was slightly dysarthric but spontaneous and had a normal rate, rhythm and volume. His affect was depressed but reactive. He denied current suicidal ideation or wishes. He denied homicidal ideation. He expressed depressive cognitions including hopelessness, helplessness and worthlessness. He ruminated about his mental health and his persistent and recurrent suicidal ideation. He did not express phobias, ideas reference or paranoid ideation. His thinking was concrete but his associations were coherent and logical. He denied hallucinations and did not appear to be responding to internal stimuli. Global impression of intellect is average. IMPRESSIONS: He is a 31-year-old male with a history of childhood onset conduct disorder and multiple psychiatric hospitalizations due to depression and suicidal ideation and/or attempts. [facility] following an intentional overdose of acetaminophen. He described feeling depressed, anxious, hopeless and helpless since he quit work. There is no evidence of psychotic symptoms. He described some use of alcohol but denied daily use to intoxication. He denied the use of other drugs get high, help him sleep or changes mood. He repeatedly stated that he wants to be transferred to a psychiatric unit other than [facility]. PLAN: Continue one-to-one sitter. Case discussed with psychiatric nursing staff. If another psychiatric unit is not available then transfer him to [facility].. 09/28/16 14:10
[2016-09-29] MEDS ORDERED: PANTOPRAZOLE 40 MG TABLET PO SCH (07:30)
== END 2016-09-28 14:37 | DRG 918 ==
LOC: EC 00:51 → 6ICU 03:29 → 4MS4W 15:13
PROVIDERS: ADMIT Internal Medicine; ATTEND Internal Medicine
DX: T39.1X2A Poisoning by 4-Aminophenol derivatives, intentional self-harm, initial encounter (principal); R45.851 Suicidal ideations; R10.9 Unspecified abdominal pain; F91.1 Conduct disorder, childhood-onset type; R47.1 Dysarthria and anarthria; F25.0 Schizoaffective disorder, bipolar type; F31.9 Bipolar disorder, unspecified; F41.0 Panic disorder [episodic paroxysmal anxiety]; F41.9 Anxiety disorder, unspecified; F10.10 Alcohol abuse, uncomplicated; Z88.5 Allergy status to narcotic agent; Z88.8 Allergy status to other drugs, medicaments and biological substances; Z86.19 Personal history of other infectious and parasitic diseases; Z56.0 Unemployment, unspecified; Z91.14 Patient's other noncompliance with medication regimen; Z63.9 Problem related to primary support group, unspecified; Z91.19 Patient's noncompliance with other medical treatment and regimen; Z87.891 Personal history of nicotine dependence; Z91.5 Personal history of self-harm; Z86.14 Personal history of Methicillin resistant Staphylococcus aureus infection; Z79.899 Other long term (current) drug therapy; Z80.9 Family history of malignant neoplasm, unspecified; Y90.0 Blood alcohol level of less than 20 mg/100 ml; Y92.009 Unspecified place in unspecified non-institutional (private) residence as the place of occurrence of the external cause
CPT/HCPCS: 36415; 80048; 80053; 80164; 80306; 80320; 82075; 83520; 83735; 84100; 84450; 84460; 85025; 85610; 93005; 96361; 96374; 99291

== ENCOUNTER 2016-09-28 14:34 | Inpatient (IN) | payer MEDICAID, OTHER ==
[2016-09-28] MEDS ORDERED: MAG HYDROX/AL HYDROX/SIMETH 30 ML CUP PO PRN (15:32)
[2016-09-28] MEDS ORDERED: ACETAMINOPHEN TAB 325 MG TAB PO PRN (15:32)
[2016-09-28] MEDS ORDERED: MAGNESIUM HYDROXIDE 2,400 MG/10 ML CUP PO PRN (15:32)
[2016-09-28] MEDS ORDERED: ZIPRASIDONE 20 MG VIAL IM PRN (15:32)
[2016-09-28 15:55] VITALS: BMI 27.5
[2016-09-28] MEDS: DIVALPROEX ER 500 MG TAB.ER.24H PO SCH (20:55)
[2016-09-29] MEDS: FLUoxetine HCL 20 MG CAP PO SCH (09:07)
--- NOTE | 2016-09-29 11:02 | P.HP ---
Psychiatric H&P - . H&P Date: 09/29/16 History & Physical: Allergies Allergy/AdvReac Type Severity Reaction Status Date / Time hydromorphone HCl Allergy Rash/Hives Verified 09/28/16 15:28 [From Dilaudid] morphine Allergy Rash/Hives Verified 09/28/16 15:28 mirtazapine [From Remeron] AdvReac Unknown Verified 09/28/16 15:28 Vital Signs Temp 97.6 F 09/29/16 06:52 Pulse 50 L 09/29/16 09:08 Resp 16 09/29/16 09:08 BP 112/59 09/29/16 09:08 Pulse Ox Intake & Output 09/28/16 09/29/16 09/29/16 18:59 06:59 18:59 Weight 84.482 kg 09/29/16 10:50 IDENTIFYING DATA: This patient is a 31-year-old single male who was admitted to the mental health unit as a transfer from the medical floor after he attempted suicide via overdose with Tylenol and Motrin. HPI: The patient presented to the hospital after overdosing with Tylenol and Motrin. He states he did this while consuming alcohol. He apparently posted on Facebook what he had done, and friends called the police. He was given charcoal in the emergency room apparently he vomited most of the pills he was medically admitted to be sure he was stable. His acetaminophen level did trend downward he was medically cleared and transferred to our mental health unit. The patient is known to me from the outpatient clinic. He carries a diagnosis of bipolar 1 disorder and alcohol dependence. He states that he has not been truthful with me in the outpatient setting and he has been utilizing alcohol regularly since May. He states he's been having 2-4 drinks. He states his mood has not been stable and he can't stand the way he feels when he is sober. He finds that he has mood swings and irritability and difficulty sleeping at night. Subsequently he sleeps during the day. He has had hopeless thoughts and states he might as well be if he can't be comfortable sober and he knows drinking is bad for him. He does have a history of major depressive episodes, he does have a history of manic episodes in the past. He is reporting no current psychosis but states from time to time he can hear his name called. He reports no command auditory hallucinations no visual hallucinations. He is reporting no thoughts of wanting to harm anyone else. He states that he wants to go to an inpatient chemical dependency treatment specifically [facility]. He has already begun calling to initiate the screening process. He states he's been compliant with his medications including the Depakote ER and Prozac. We had previously tried utilizing Abilify he did not find that effective in the past. PAST PSYCHIATRIC HISTORY: The patient has had at least 6 prior inpatient psychiatric admissions the last one was in 2015 [facility]. He has a known diagnosis of bipolar 1 disorder. We have been prescribing Depakote ER 1500 mg at bedtime Prozac 40 mg daily. He has been on Abilify, Zyprexa, Geodon, BuSpar , Remeron, invega, Klonopin in the past. He has previously worked with Dr. Silva, Dr. Orellana, Dr. Douglas. He does have a history of other suicide attempts involving medication overdoses. He is not currently working with an individual therapist. PMH: None reported ALLERGIES: Remeron, morphine, hydromorphone MEDICATIONS: Depakote and Prozac CHEMICAL DEPENDENCY HISTORY: The patient does have a history of alcohol use disorder, he states he has not been truthful with me in the outpatient setting and has been drinking since May. He reports using marijuana frequently. He does have a history of using cocaine but has not used that for several years. He states he will intermittently attend AA or NA meetings. FAMILY PSYCHIATRIC HISTORY: None reported, no suicides in the family FAMILY CHEMICAL DEPENDENCY HISTORY: Unknown SOCIAL HISTORY: The patient is 31 years old, he single he has no children. He has no significant other at this time. He resides with his parents. He is unemployed. He has a high school education, no history of special education assistance. He was home schooled during his high school years. He reports having little social interaction recreationally he does work out trying to body build. He has 3 older brothers. No history of service. MENTAL STATUS EXAM: The patient is alert he is a male appearing his stated age he has a disheveled appearance he has a wells he is dressed in his own clothing. Eye contact is appropriate speech is fluent spontaneous nonpressured. He reports recent feelings of hopelessness and feeling suicidal. No homicidal ideation intent or plan. He states infrequently he will hear his name called but otherwise describes no auditory or visual hallucinations no specific delusions. No evidence of psychosis at this time. He has a history of manic episodes but he does not appear hypomanic or manic currently. Thought process is linear and goal-directed. Affect is constricted. Insight and judgment limited. He demonstrates no verbal or physical aggressiveness. He expresses some frustration been admitted to this mental health unit. He is able to spell world backwards. Short-term memory appears to be intact based on our conversation and recalling recent events. STRENGTHS/WEAKNESSES: Strengths: Housing, support from family willingness to go to rehab weaknesses: Ongoing alcohol use and marijuana use, poor coping skills INTELLECTUAL FUNCTIONING: Average IMPRESSIONS: [] 1. Bipolar 1 disorder most recent depressed, alcohol use disorder 2. Cluster B traits 3. Recent Tylenol and Motrin overdose patient is medically stable Plan: The patient has been admitted to the mental health unit he has signed in voluntarily. We reviewed his presenting symptoms and medication options. We will continue the Depakote ER 1500 mg at bedtime Prozac 40 mg daily to assist with mood stabilization we will add Seroquel 50 mg at bedtime and May titrate further monitoring for any sedation. He will undergo routine medical consultation. Social work will meet with patient to complete a psychosocial assessment and begin discharge planning. He is interested in attending them a couple dependency treatment on an inpatient basis at [facility]. We support that placement. We will monitor for safety and encourage his participation in the milieu. His family will be involved in treatment and discharge planning as he will allow.
--- NOTE | 2016-09-29 18:09 | CONS ---
DATE OF CONSULTATION: REASON FOR CONSULTATION: Mild sinus bradycardia. Patient was discharged my colleagues service after patient presented on overdose on Tylenol in an attempt to commit suicide and patient was admitted to medical floor. Was on the medical floor for 3 days. Did very well. Normal liver enzymes. Patient was subsequently discharged to psychiatric floor. Patient is clinically doing well. Patient denied any fever or chills. The patient denied any nausea or vomiting. Patient has a little bit of nausea since his hospitalization since acetaminophen overdose. Beyond that, denied any other complaints at this point of time. Patient has mild sinus tachycardia, which is not abnormal for people of his age. His last EKG was sinus rhythm. I will obtain a repeat EKG. Patient denied any lightheadedness. Denied any fever, chills, denied vomiting. Was complaining of a little bit of nausea. REVIEW OF SYSTEMS: CONSTITUTIONAL: No fever, no malaise, no fatigue. HEENT: No recent visual problems or hearing problems. Denied any sore throat. CARDIOVASCULAR: No chest pain, orthopnea, PND, no palpitations, no syncope. PULMONARY: No shortness of breath, no cough, no hemoptysis. GASTROINTESTINAL: As mentioned above. NEUROLOGICAL: No headaches, no weakness, no numbness. HEMATOLOGICAL: Denies any bleeding or petechiae. GENITOURINARY: Denies any burning micturition, frequency, or urgency. MUSCULOSKELETAL/RHEUMATOLOGICAL: Denies any joint pain, swelling, or any muscle pain. ENDOCRINE: Denies any polyuria or polydipsia. The rest of the 14 point review of systems is negative. ALLERGIES: ALLERGIC TO HYDROMORPHONE, MORPHINE AND ( ). PAST MEDICAL HISTORY: Significant for depression, left elbow repair in 2003, schizophrenia in the past. SOCIAL HISTORY: Former smoker, drinks alcohol every day, is not having withdrawals at this point of time. Denied any IV drug use. Home medications: 1. Patient is presently on Acetaminophen. 2. Maalox. 3. Divalproex. 4. Fluoxetine. 5. Magnesium oxide. 6. ( ). 7. Ziprasidone that is Geodon. PHYSICAL EXAMINATION: VITAL SIGNS: Temperature 97.6, pulse of 50, respiratory rate of 16, blood pressure 112/59, saturating at 100% on room air. GENERAL: The patient is alert and oriented x3, not in any acute distress. Well developed, well nourished. HEENT: Pupils are round and equally reacting to light. EOMI. No scleral icterus. No conjunctival pallor. Normocephalic, atraumatic. No pharyngeal erythema. No thyromegaly. CARDIOVASCULAR: S1 and S2 present. No murmurs, rubs, or gallops. PULMONARY: Chest is clear to auscultation, no wheezing or crackles. ABDOMEN: Soft, nontender, nondistended, normoactive bowel sounds. No palpable organomegaly. MUSCULOSKELETAL: No joint swelling or deformity. EXTREMITIES: No cyanosis, clubbing, or pedal edema. NEUROLOGICAL: Gross neurological examination did not reveal any focal deficits. SKIN: No rashes. LABORATORY DATA: None available from today. His lab data from his previous hospitalization was reviewed. ASSESSMENT AND PLAN: 1. Mild sinus bradycardia which is not abnormal for people of his age, anyways, we will repeat another EKG to make sure patient has sinus bradycardia. No other heart blocks. 2. Severe depression and suicidal ideation, management as per primary service. 3. Nausea secondary to mild gastritis, which can be related as stress for which patient is already on Maalox and no further intervention is necessary at this point of time. 4. Alcohol abuse history. Counseling was provided. Thank you for letting me participate in this patient's care. Will continue to follow the patient on an as-needed basis. Please call us back if needed. We will sign off at this point of time.
[2016-09-29] MEDS ORDERED: QUEtiapine 50 MG TAB PO SCH (21:00)
[2016-09-29] MEDS: DIVALPROEX ER 500 MG TAB.ER.24H PO SCH (21:02)
[2016-09-30] MEDS: FLUoxetine HCL 20 MG CAP PO SCH (09:07)
--- NOTE | 2016-09-30 09:35 | P.PN ---
Progress Note - Text Interval history: The patient is found in his room he follows me to an interview room. He states his mood is okay. He does feel tired. He is not sure if it's from initiating the Seroquel or from the overdose precipitating the admission. After further discussion this morning the patient admits that he has been injecting anabolic steroids for the last 3 months and quit just 2 weeks ago. We discussed the psychological and physiological dangers of using those. He states that he will discontinue those completely. He is still motivated for placement at [facility] for inpatient chemical dependency treatment. We discussed titrating the Seroquel to 100 mg at bedtime to further stabilize mood and he is agreeable. Mental status exam: The patient is alert he seated calmly eye contacts appropriate he has some spontaneous speech but mainly answers questions asked. He struggles with identifying his mood today. He reports feeling safe in the hospital and has no acute self-injurious thoughts. He continues to feel uncomfortable with his recent mood swings. He is demonstrating no verbal or physical aggressiveness. No abnormal involuntary movements. Insight and judgment limited. He is reporting no homicidal ideation. He endorses no auditory or visual hallucinations. No report a specific delusions. Affect is constricted to bland. Plan: The patient will continue on his current medications I will increase his Seroquel to 100 mg at bedtime. We had a lengthy discussion regarding the importance of discontinuing use of anabolic steroids for bodybuilding. We will confirm his scheduled date at [facility]. He is encouraged to participate in the milieu more. We will monitor him for safety.
[2016-09-30] MEDS: DIVALPROEX ER 500 MG TAB.ER.24H PO SCH (20:35)
[2016-09-30] MEDS: QUEtiapine 100 MG TAB PO SCH (20:35)
[2016-10-01] MEDS: FLUoxetine HCL 20 MG CAP PO SCH (09:26)
--- NOTE | 2016-10-01 09:56 | P.PN ---
Progress Note - Text Interval history: The patient is found in his room he follows me to an interview room. He reports that he slept well last night appetite is stable. He states he is not attending groups as they are not "applicable and do not help anyone". We discussed his current medications. He does have some mild feelings sedation with the Seroquel in the morning but is comfortable with the idea that that may resolve and he may benefit from continued use of Seroquel. We again discussed the importance of him abstaining from any anabolic steroid use as an outpatient and he is agreeable. He continues to look forward to rehab placement on October 14 at [place]. He states he had a visit from his girlfriend last evening and that was supportive. Mental status exam: The patient is alert he is dressed in his own clothing hygiene grooming adequate. Eye contact appropriate speech is fluent and spontaneous. He is able to demonstrate some range of affect. He is reporting no acute suicidal or homicidal ideation intent or plan. He demonstrates future oriented thinking. He is reporting no auditory or visual hallucinations he is endorsing no specific delusions. He does not appear hypomanic or manic. He remains oriented to person place and date. Insight and judgment improving. No abnormal involuntary movements. Plan: The patient will continue on his current psychotropic medication. Social work will be asked to arrange a support meeting. We will consider discharge in the next 1-2 days. We will continue to monitor for safety, he is encouraged to participate in the milieu. Vital signs stable.
[2016-10-01] MEDS: DIVALPROEX ER 500 MG TAB.ER.24H PO SCH (20:03)
[2016-10-01] MEDS: QUEtiapine 100 MG TAB PO SCH (20:03)
[2016-10-02 00:11] VITALS: BP 103/52; PULSE 85; RESP 18; TEMP 97.7
--- NOTE | 2016-10-02 07:54 | P.DS ---
Providers Date of admission: 09/28/16 14:34 Expected date of discharge: 10/02/16 Attending physician: Kunal Castro Consults: 09/28/16 15:32 Consult Physician Routine Consulting Provider: Edson Dunn Consult Reason/Comments: Medical care Do you want consulting provider notified?: Yes Primary care physician: Stated None - Discharge Diagnosis(es) (1) Bipolar 1 disorder, depressed, severe Current Visit: Yes Status: Acute Priority: High (2) Alcohol use disorder Current Visit: Yes Status: Acute Priority: High Hospital Course: Brief summary of admission note: This patient is a 31-year-old single male who is known to my outpatient practice who was admitted to the mental health unit after a suicide attempt via overdosing with Tylenol and Motrin. He reports he did this while consuming alcohol. Upon admission he states he had not been truthful with me in the outpatient setting and he's been using alcohol since May. He reported having mood swings irritability and some anxiety and was self-medicating with alcohol however the alcohol made him feel more depressed. Subsequently he felt overwhelmed and hopeless and decided to overdose. Fortunately had posted on Facebook what he had done the police were called and he was brought to the hospital. He was admitted to the medical unit and was medically cleared prior to transfer to our mental health unit. Summary of hospital course: The patient was admitted to the mental health unit he signed in voluntarily. We reviewed his presenting symptoms and medication options. We decided to continue the Prozac and Depakote ER and added Seroquel titrating to 100 mg at bedtime. This was added to help stabilize mood improved sleep at night and possibly reduce anxiety. The patient selectively attended groups. He demonstrated no agitated behavior. He reported a progressive improvement of symptoms while here. During the course of the admission he shared that he has been injecting anabolic steroids for the last 3 months. Obviously this can impact his mood and an adverse fashion and we discussed the importance of him discontinuing use of anabolic steroids. He felt he was using a version that was "safer" but was agreeable to discontinuing the anabolic steroids. The patient is agreeable to participating in a support meeting with family and that will be arranged today. The patient's also needs to improve his compliance with outpatient appointments, eating lab work, and working with an individual therapist. We discussed this at length yesterday and he agreed to comply with appointments better. He states he did work with a good therapist at [facility] and would like to be rescheduled at that clinic for individual psychotherapy. He was self-motivated to arrange inpatient chemical dependency treatment at [facility]. A packet has been sent and we believe his placement date is October 14. He states he plans on attending AA meetings until rehab placement. Mental status exam: The patient is alert he is dressed in his own clothing eye contact is appropriate speech is fluent spontaneous nonpressured. Affect is appropriately expressive he appears euthymic. He reports his mood is "good". He denies having any suicidal or homicidal ideation intent or plan. No report of auditory or visual hallucinations no report of any specific delusions. He does not appear to have any hypomanic or manic symptoms. Insight and judgment have improved. Cognitively he remains stable he is alert and oriented to person place and date. Thought process is linear there is no evidence of circumstantial or tangential thinking no flight of ideas or loose associations. No abnormal involuntary movements. He demonstrates no verbal or physical aggressiveness. Impressions 1. Bipolar 1 disorder most recent depressed, alcohol use disorder, use of injected anabolic steroids 2. Cluster B traits 3. Recent Tylenol and Motrin overdose, patient is medically stable Plan: The patient will be discharged home from the mental health unit today following a successful support meeting facilitated by social work. The patient will continue to follow with me in the outpatient setting for psychiatric medication management and has been scheduled to follow up with [facility] for individual psychotherapy. He will follow with his primary care physician for routine medical needs. He will continue on Depakote ER 1500 mg at bedtime, Prozac 40 mg daily, Seroquel 100 mg at bedtime. He is reporting no suicidal or homicidal ideation there is no evidence of psychosis he is able to meet his activities of daily living. There is no imminent safety risk he is appropriate for transition back to outpatient care. We discussed that his safety risk would be elevated should he restart use of alcohol anabolic steroids or any other substances not prescribed to him. He is scheduled to attend inpatient chemical dependency treatment and plans on attending AA meetings until that placement date. He is instructed to return to the emergency room with any acute safety concerns. Patient Condition at Discharge: Stable Plan - Discharge Summary New Discharge Prescriptions: Divalproex ER [Depakote ER] 1,500 mg PO HS #90 tab.er.24h FLUoxetine HCL [PROzac] 40 mg PO DAILY #30 capsule QUEtiapine [SEROquel] 100 mg PO HS #30 tab Discharge Medication List Divalproex ER [Depakote ER] 1,500 mg PO HS #90 tab.er.24h 10/02/16 [Rx] FLUoxetine HCL [PROzac] 40 mg PO DAILY #30 capsule 10/02/16 [Rx] QUEtiapine [SEROquel] 100 mg PO HS #30 tab 10/02/16 [Rx]
[2016-10-02] MEDS: FLUoxetine HCL 20 MG CAP PO SCH (08:56)
== END 2016-10-02 13:15 | disposition home or self-care (01) | DRG 885 ==
LOC: 3MHU 14:34
PROVIDERS: ADMIT Psychiatry & Neurology Psychiatry; ATTEND Psychiatry & Neurology Psychiatry
DX: F31.9 Bipolar disorder, unspecified (principal); F41.9 Anxiety disorder, unspecified; F10.20 Alcohol dependence, uncomplicated; F12.90 Cannabis use, unspecified, uncomplicated; Z79.899 Other long term (current) drug therapy; Z87.891 Personal history of nicotine dependence; Z88.5 Allergy status to narcotic agent; Z91.5 Personal history of self-harm; F55.3 Abuse of steroids or hormones
CPT/HCPCS: 93005

== ENCOUNTER 2017-06-05 09:36 | Observation (INO) | payer MEDICAID, OTHER ==
[2017-06-05] MEDS ORDERED: ACETAMINOPHEN TAB 325 MG TAB PO PRN (13:05)
[2017-06-05] MEDS ORDERED: NALOXONE 0.4 MG/ML 1 ML VIAL IV PRN (13:05)
[2017-06-05] MEDS: SODIUM CHLORIDE 0.9% 1,000 ML IV SCH ×2 (13:17→20:41)
[2017-06-05] MEDS: LITHIUM CARBONATE 300 MG CAP PO SCH ×2 (16:57→22:36)
[2017-06-05 18:07] VITALS: BMI 26.6
[2017-06-06] MEDS: SODIUM CHLORIDE 0.9% 1,000 ML IV SCH ×3 (03:04→17:09)
[2017-06-06 07:22] LABS: Basophils % (A) 0 %; Eosinophils # (A) 0.2 k/uL (0-0.7); Eosinophils % (A) 2 %; HCT 40.5 % (39.0-53.0); HGB 13.3 gm/dL (13.0-17.5); Lymphocytes # (A) 2.6 k/uL (1.0-4.8); Lymphocytes % (A) 34 %; MCH 30.6 pg (25.0-35.0); MCHC 32.9 g/dL (31.0-37.0); Mean Platelet Volume 7.2; Monocytes # (A) 0.4 k/uL (0-1.0); Monocytes % (A) 6 %; Neutrophils # (A) 4.3 k/uL (1.3-7.7); Neutrophils % (A) 56 %; Platelet Count 232 k/uL (150-450); RBC 4.36 m/uL (4.30-5.90); RDW 12.7 % (11.5-15.5); WBC 7.7 k/uL (3.8-10.6)
[2017-06-06 07:55] LABS: ALT 26 U/L (21-72); AST 11 U/L (17-59); Albumin 3.4 g/dL (3.5-5.0); Alkaline Phosphatase 24 U/L (38-126); Anion Gap 5 mmol/L; Blood Urea Nitrogen 10 mg/dL (9-20); Calcium 8.8 mg/dL (8.4-10.2); Carbon Dioxide 23 mmol/L (22-30); Chloride 112 mmol/L (98-107); Glucose 92 mg/dL (74-99); Potassium 4.2 mmol/L (3.5-5.1); Sodium 140 mmol/L (137-145); Total Bilirubin 0.4 mg/dL (0.2-1.3)
[2017-06-06] MEDS: LITHIUM CARBONATE 300 MG CAP PO SCH ×3 (08:27→21:10)
--- NOTE | 2017-06-06 13:33 | P.HPIM ---
History of Present Illness H&P Date: 06/06/17 Chief Complaint: Syncope 31 year old male with no significant past medical history except for depression presented to the psych unit initially due to suicidal ideation, he was planning to drive fast on the highway and take his life, but he did not and instead called for help. He reports overwhelming emotional stressors but claims to be compliant with his meds. While he was in the psych unit I was called to see him because he passed out twice this morning. The staff noted that he suddenly felt dizzy, slumped over and hit his head on the wall. According to him he did lose consciousness during the event. The event lasted for a few seconds. After he woke up and regained his full consciousness he started having some headaches. He also feels sick to stomach, but no shortness of breath or chest pain. According to the psychiatrist patient was just started on lithium a few days ago to stabilize his mood as well as seroquel. After the syncope his heart rate was in the 40s and his blood pressure was low 84/45. Stat CBC, CMP, troponin, mag and phosphorus as well as lithium level were all checked and came back within normal level. Stat head CT did not show any acute intracranial abnormalities. Patient was transferred to [facility] with telemetry. Review of Systems 12 point review of system was performed, negative except for HPI Past Medical History Past Medical History: No Reported History Additional Past Medical History / Comment(s): History of depression History of Any Multi-Drug Resistant Organisms: None Reported, MRSA Date of last positivie culture/infection: 2012 MDRO Source:: Bilaterial great toes Past Surgical History: Orthopedic Surgery Additional Past Surgical History / Comment(s): Left elbow orthopedic surgery 2003 Past Anesthesia/Blood Transfusion Reactions: No Reported Reaction Past Psychological History: Anxiety, Bipolar, Depression, Schizophrenia Smoking Status: Current every day smoker Past Alcohol Use History: None Reported Additional Past Alcohol Use History / Comment(s): Pt. states he has been sober for 10 & 1/2 yrs and has drank 3 times since then 2-3 beers each time. Past Drug Use History: None Reported - Past Family History Mother Family Medical History: Cancer Medications and Allergies Home Medications Medication Instructions Recorded Confirmed Type Divalproex ER [Depakote ER] 1,500 mg PO HS #90 tab.er.24h 10/02/16 06/05/17 Rx QUEtiapine [SEROquel] 100 mg PO HS #30 tab 10/02/16 06/05/17 Rx FLUoxetine HCL [PROzac] 10 mg PO DAILY 06/01/17 06/05/17 History Loxapine Succinate [Loxapine] 25 mg PO HS 06/01/17 06/05/17 History Allergies Allergy/AdvReac Type Severity Reaction Status Date / Time hydromorphone HCl Allergy Rash/Hives Verified 06/05/17 11:47 [From Dilaudid] morphine Allergy Rash/Hives Verified 06/05/17 11:47 mirtazapine [From Remeron] AdvReac Unknown Verified 06/05/17 11:47 Physical Exam Vitals: Vital Signs Temp Pulse Resp BP Pulse Ox 06/05/17 13:22 94/55 06/05/17 13:16 64 89/51 06/05/17 12:33 97.6 F 59 L 20 80/45 99 Intake and Output 06/04/17 06/05/17 06/05/17 22:59 06:59 14:59 Other: Weight 81.647 kg Patient Weight 06/06/17 06:59 Weight 81.647 kg Constitutional: No acute distress, conversant, pleasant Eyes:Anicteric sclerae, moist conjunctiva, no lid-lag, PERRLA, ENMT: Oropharynx clear, no erythema, exudates Neck: Supple, FROM, no masses, or JVD, No carotid bruits, No thyromegaly Lungs: Clear to auscultation, Clear to percussion, Normal respiratory effort, no accessory muscle use Cardiovascular: Heart regular in rate and rhythm, No murmurs, gallops, or rubs, No peripheral edema Abdominal: Soft, Nontender, no guarding, rebound or rigidity, Normoactive bowel sounds, No hepatomegaly, No splenomegaly, No palpable mass Skin: Normal temperature, tone, texture, turgor, no induration, No subcutaneous nodules, No rash, lesions, No ulcers Extremities: No digital cyanosis, No clubbing, Pedal pulses intact and symmetrical, Radial pulses intact and symmetrical, No calf tenderness Psychiatric: Alert and oriented to person, place and time, intact judgement Neuro: Muscles Strength 5/5 in all 4 extremities, Sensation to light touch grossly present throughout, Cranial nerves II-XII grossly intact, no focal sensory deficits Results CBC & Chem 7: 06/06/17 07:05 06/06/17 07:05 Assessment and Plan Plan: #1 Acute syncope/sinus bradycardia/hypotension: Likely secondary to Seroquel, will discontinue Transferred to [facility] Telemetry Troponin, CBC, CMP, EKG all within normal limits [place] level within normal limits Head CT within normal limits IV fluid bolus normal saline 1 L If hypotension persists will bolus again Discussed with Dr. Castro from psychiatry #2 Severe major depression with suicidal ideations: Management per psychiatry Continue lithium Suicide precautions #3 Smoking: Counseled to quit
--- NOTE | 2017-06-06 13:35 | P.PN ---
Subjective Progress Note Date: 06/06/17 Principal diagnosis: Syncope Patient is feeling better today, his symptoms are all resolved. No nausea or vomiting, blurry or double vision, headaches, loss of consciousness or syncope. No focal weakness or numbness. Objective - Vital Signs Vital signs: Vital Signs Temp 97.3 F L 06/06/17 08:50 Pulse 52 L 06/06/17 08:50 Resp 12 06/06/17 08:50 BP 95/48 06/06/17 08:50 Pulse Ox 98 06/06/17 08:50 Intake & Output 06/05/17 06/06/17 06/06/17 18:59 06:59 18:59 Intake Total 1300 1750 Balance 1300 1750 Weight 81.647 kg Intake: IV 1350 Sodium Chloride 0.9% 1, 1350 000 ml @ 150 mls/hr IV . Q6H40M [facility] Rx#:[id number] Intake, IV Titration 1300 Amount Sodium Chloride 0.9% 1, 1300 000 ml @ 150 mls/hr IV . Q6H40M [facility] Rx#:[id number] Oral 400 Other: Voiding Method Toilet Toilet Toilet # Voids 1 - Exam Constitutional: No acute distress, conversant, pleasant Eyes:Anicteric sclerae, moist conjunctiva, no lid-lag, PERRLA, ENMT: Oropharynx clear, no erythema, exudates Neck: Supple, FROM, no masses, or JVD, No carotid bruits, No thyromegaly Lungs: Clear to auscultation, Clear to percussion, Normal respiratory effort, no accessory muscle use Cardiovascular: Heart regular in rate and rhythm, No murmurs, gallops, or rubs, No peripheral edema Abdominal: Soft, Nontender, no guarding, rebound or rigidity, Normoactive bowel sounds, No hepatomegaly, No splenomegaly, No palpable mass Skin: Normal temperature, tone, texture, turgor, no induration, No subcutaneous nodules, No rash, lesions, No ulcers Extremities: No digital cyanosis, No clubbing, Pedal pulses intact and symmetrical, Radial pulses intact and symmetrical, No calf tenderness Psychiatric: Alert and oriented to person, place and time, intact judgement Neuro: Muscles Strength 5/5 in all 4 extremities, Sensation to light touch grossly present throughout, Cranial nerves II-XII grossly intact, no focal sensory deficits - Labs CBC & Chem 7: 06/06/17 07:05 06/06/17 07:05 Labs: Abnormal Lab Results - Last 24 Hours (Table) 06/06/17 Range/Units 07:05 Chloride 112 H (98-107) mmol/L AST 11 L (17-59) U/L Alkaline Phosphatase 24 L (38-126) U/L Total Protein 6.0 L (6.3-8.2) g/dL Albumin 3.4 L (3.5-5.0) g/dL Assessment and Plan Plan: #1 Acute syncope/sinus bradycardia/hypotension: Likely secondary to Seroquel, will discontinue Transferred to [facility] Blood pressure and heart rate are improved, discontinue IV fluids Continue to monitor on telemetry Discussed with Dr. Castro from psychiatry #2 Severe major depression with suicidal ideations: Management per psychiatry Continue lithium Suicide precautions #3 Smoking: Counseled to quit
--- NOTE | 2017-06-06 15:20 | CONS ---
CONSULTATION DATE OF SERVICE: 06/06/2017. IDENTIFYING DATA: This patient is a 31-year-old single male who is known to my outpatient practice, who was transferred to the medical floor from the mental health unit due to syncope. HISTORY OF PRESENT ILLNESS: The patient was originally admitted to the mental health unit several days ago with the chief complaint of acute suicidal ideation and thoughts of driving his vehicle off the highway. During his time on the mental health unit, we had restarted his Seroquel at bedtime and initiated lithium 300 mg 3 times daily for mood stabilization. He experienced a syncopal episode early yesterday morning. He was seen by internal medicine and transferred to the medical unit for further workup. We decided to discontinue the Seroquel as it may have caused orthostatic hypotension. The lithium has been maintained. The patient is found in his bed with his parents at bedside. He is seated upright in bed. Eye contact is appropriate. He describes that his mood is improving. He is feeling physically better. He is motivated for being discharged from the hospital. We discussed the importance of continuing the lithium a little longer first, so that we can get a steady state blood level, and he is agreeable. His parents provided collateral information during the course of our session today. The patient does have a known history of bipolar disorder and has been experiencing more lability of mood and affect. His presenting symptoms also occur in the context of a recent break-up with a girlfriend. PAST PSYCHIATRIC HISTORY: The patient has numerous inpatient psychiatric admissions, his last was at [facility] last month. He does have a history of other suicidal attempts. At [facility] he was placed on loxapine. We decided to discontinue that medication and initiate lithium. He previously has been on Depakote, Seroquel and Prozac amongst numerous other psychotropics. CHEMICAL DEPENDENCY HISTORY: He has a history of alcohol use disorder, but has remained sober. SOCIAL HISTORY: The patient is 31 years old. He is single. He has no children. He resides with his parents. No history of service. MENTAL STATUS EXAM: The patient is alert. He is a thin male, appearing his stated age. She is seated upright in bed. Eye contact is appropriate. He reports that his mood is improving. He states he does not have any acute suicidal or homicidal ideation. He is endorsing no auditory or visual hallucinations and there is no observed evidence of psychosis. He is endorsing no specific delusions. Thought process is linear. He demonstrates no tangential thinking, loose associations or flight of ideas. He does not appear hypomanic or manic. He demonstrates no abnormal involuntary movements are normal and demonstrates no verbal physical aggressiveness. He is oriented to person, place, and date. IMPRESSION: 1. Bipolar disorder, most recent depressed. 2. History of alcohol use disorder, in remission. PLAN: The patient will be continued on lithium carbonate 300 mg three times daily. Again, it was discussed with the parents that they will need to administer the medication to him as he does have a history of overdosing with medications and his parents are agreeable. The patient continues to be evaluated by Internal Medicine and it is expected that he will be medically cleared tomorrow. We will draw a lithium level tomorrow. If it is therapeutic and within the normal range, we will consider discharging from the hospital tomorrow. We will continue the health safety manager as a precaution. The treatment plan was discussed with the patient and his parents and all parties agree. ANDIE / OLE: [id number] /
[2017-06-06 17:14] VITALS: RESP 16
[2017-06-06] MEDS ORDERED: SODIUM CHLORIDE 0.9% 500 ML IV ONE (18:17)
[2017-06-07] MEDS: SODIUM CHLORIDE 0.9% 1,000 ML IV SCH ×2 (02:58→12:25)
[2017-06-07] MEDS: LITHIUM CARBONATE 300 MG CAP PO SCH ×2 (07:55→13:31)
[2017-06-07 07:57] VITALS: PULSE 61; TEMP 97.9
[2017-06-07 08:11] VITALS: BP 105/60
[2017-06-07 09:20] LABS: ALT 29 U/L (21-72); AST 13 U/L (17-59); Albumin 3.5 g/dL (3.5-5.0); Alkaline Phosphatase 24 U/L (38-126); Anion Gap 8 mmol/L; Blood Urea Nitrogen 9 mg/dL (9-20); Calcium 8.9 mg/dL (8.4-10.2); Carbon Dioxide 23 mmol/L (22-30); Chloride 110 mmol/L (98-107); Glucose 86 mg/dL (74-99); Lithium 0.8 mmol/L; Potassium 4.1 mmol/L (3.5-5.1); Sodium 141 mmol/L (137-145); Total Bilirubin 0.6 mg/dL (0.2-1.3); Total Protein 5.9 g/dL (6.3-8.2)
--- NOTE | 2017-06-07 09:20 | P.PN ---
Progress Note - Text Progress Note Date: 06/07/17 Hospitalist interval note: Patient is a 31-year-old male with a past medical history of depression and current tobacco abuse who was transferred to the medical Hospital from the mental health unit secondary to a syncopal episode. He had been started on Seroquel and none was found to have low blood pressures and possible syncopal episode 2. After his syncopal episode he was found to have a heart rate in the 40s and a blood pressure of 84/45. He underwent stat blood work and lithium level all which were within normal limits. Stat head CT did not show any acute intracranial abnormalities and he was subsequently transferred to the medical surgical floor with telemetry and telemetry has demonstrated normal sinus rhythm. He did have one episode of low blood pressures on 06/06 which responded to IV fluid administration. Orthostatic vitals were checked on the morning of 06/07 and demonstrated an increase in blood pressure on standing. He was seen by psychiatry who felt he could likely go home after he was determined medically stable. His parents will need to ensure to give him his medications. And he will need to continue outpatient psychiatric follow-up. Patient seen and examined at bedside. He denies any chest pain, shortness of breath, lightheadedness, or dizziness. He states he was not symptomatic estrogen with his blood pressure was lower. He believes he has had an echocardiogram in the past approximately 2 years ago but is unsure why. Likely home today if echo is unrevealing.
--- NOTE | 2017-06-07 10:24 | P.PN ---
Progress Note - Text Interval history: The patient is found in his room he seated upright in bed. He reports his mood is good he is endorsing no suicidal or homicidal ideation intent or plan. He has been seen by internal medicine and a cardiac echo has been ordered due to his recent episode of syncope. Physically he reports he feels well. He has no questions or concerns regarding the lithium lithium level is normal at 0.8 this morning. He reports sleep and appetite are intact. He demonstrates future oriented thinking. He is aware he will follow up with me within one week at the office and with [facility] for therapy. I was able to discuss his treatment plan with the team on the medical floor. I discussed his care with social media project manager here on this unit to communicate with them. Mental status exam: The patient is alert he seated upright he probably participates in the interview. Eye contact is good speech is fluent spontaneous nonpressured. He demonstrates an appropriate range of affect. He denies having any suicidal or homicidal ideation intent or plan. He is reporting no auditory or visual hallucinations or specific delusions there is no evidence of psychosis. He does not appear hypomanic or manic. Insight and judgment improved. No verbal or physical aggressiveness demonstrated. Plan: Bipolar 1 disorder most recent depressed, alcohol use disorder in remission, the patient will be discharged today from the hospital once he is medically cleared. He will continue on lithium carbonate 300 mg 3 times daily. He will follow up with me for psychiatric medication management in the outpatient setting and with [facility] for outpatient therapy. There is no imminent safety risk he is appropriate for transition to outpatient care. He is instructed to return to the hospital with any acute safety concerns. As always he is reminded to continue abstaining from substances as they would elevate his safety risk..
--- NOTE | 2017-06-07 12:27 | ECHOF ---
Referral Reason:syncope low blood pressure MEASUREMENTS -------- HEIGHT: 180.3 cm WEIGHT: 81.6 kg BP: 105/0 IVSd: 0.9 cm (0.6 - 1.1) LVIDd: 5.0 cm (3.9 - 5.3) LVPWd: 1.2 cm (0.6 - 1.1) EDV(Teich): 120 ml IVSs: 1.1 cm LVIDs: 3.7 cm LVPWs: 1.4 cm %IVS Thck: 28 % ESV(Teich): 58 ml EF(Teich): 52 % %FS: 27 % SV(Teich): 62 ml Ao Diam: 3.3 cm (2.0 - 3.7) LA Diam: 3.0 cm (2.7 - 3.8) AV Cusp: 2.3 cm (1.5 - 2.6) EPSS: 0.8 cm MV E Rickie: 0.92 m/s MV DecT: 235 ms MV Dec [place]: 3.9 m/s MV A Rickie: 0.35 m/s MV E/A Ratio: 2.60 MV PHT: 68 ms MR Vmax: 1.33 m/s MR maxP.11 mmHg AV Vmax: 1.36 m/s AV maxP.38 mmHg TR Vmax: 2.17 m/s TR maxP.81 mmHg RAP: 5.00 mmHg RVSP: 23.81 mmHg MV EF SLOPE: 200.22 mm/s (70 - 150) MV EXCURSION: 15.49 mm (> 18.000) FINDINGS -------- Resting bradycardia (HR<60bpm). This was a technically good study. The left ventricular size is normal. Left ventricular wall thickness is normal. Overall left vent ricular systolic function is normal with, an EF between 55 - 60 %. The right ventricle is normal in size and function. The left atrium is normal in size. The right atrium is normal in size. The aortic valve is trileaflet, and appears structurally normal. No aortic stenosis or regurgitation. The mitral valve leaflets are mildly thickened. There is trace mitral regurgitation. Trace tricuspid regurgitation present. The right ventricular systolic pressure, as measured by Dopp ler, is 23.81mmHg. Pulmonic valve appears structurally normal. The aortic root size is normal. Normal inferior vena cava with normal inspiratory collapse consistent with estimated right atrial pre ssure of 5 mmHg. The pericardium is normal. CONCLUSIONS -------- 1. Resting bradycardia (HR<60bpm). 2. This was a technically good study. 3. The left ventricular size is normal. 4. Left ventricular wall thickness is normal. 5. Overall left ventricular systolic function is normal with, an EF between 55 - 60 %. 6. The right ventricle is normal in size and function. 7. The left atrium is normal in size. 8. The right atrium is normal in size. 9. The aortic valve is trileaflet, and appears structurally normal. No aortic stenosis or regurgitati on. 10. The mitral valve leaflets are mildly thickened. 11. There is trace mitral regurgitation. 12. Trace tricuspid regurgitation present. 13. The right ventricular systolic pressure, as measured by Doppler, is 23.81mmHg. 14. Pulmonic valve appears structurally normal. 15. The aortic root size is normal. 16. Normal inferior vena cava with normal inspiratory collapse consistent with estimated right atrial pressure of 5 mmHg. 17. The pericardium is normal. BANQUET MANAGER: Sirisha Vitale, [facility]
--- NOTE | 2017-06-07 13:52 | P.DS ---
Providers Date of admission: 06/05/17 09:54 Expected date of discharge: 06/07/17 Attending physician: Morgan Morocho MD Consults: Dr. Castro Primary care physician: Morgan Morocho MD - Discharge Diagnosis(es) (1) Syncope Current Visit: Yes Status: Acute (2) Hypotension Current Visit: Yes Status: Acute (3) Tobacco abuse Current Visit: Yes Status: Acute (4) Depression Current Visit: No Status: Acute Priority: High Hospital Course: Patient is a 31-year-old male with a past medical history of depression and current tobacco abuse who was transferred to the [facility] from the mental health unit secondary to a syncopal episode. He had been started on Seroquel and was found to have possible syncopal episode 2. After his syncopal episode he was found to have a heart rate in the 40s and a blood pressure of 84/45. He underwent stat blood work and lithium level all which were within normal limits. Stat head CT did not show any acute intracranial abnormalities and he was subsequently transferred to the medical surgical floor with telemetry and telemetry has demonstrated normal sinus rhythm. He did have one episode of low blood pressures on 06/06 which responded to IV fluid administration. Orthostatic vitals were checked on the morning of 06/07 and demonstrated an increase in blood pressure on standing. He was seen by psychiatry who felt he could likely go home after he was determined medically stable. His parents will need to ensure to give him his medications. He will continue outpatient psychiatric follow-up. He underwent an echocardiogram which was normal. Telemetry had revealed sinus bradycardia only but no significant abnormalities. He does not have a primary care physician but will consider getting one in the giving Dr. Carrillo's number. His mother was at bedside and ensure that she will be giving him his medications. Case was discussed with Dr. Castro who will see him within 1 week and he will continue his lithium, patient has been provided a 2 week prescription of this. Patient seen and examined at bedside. He has no complaints. Denies chest pain , shortness of breath, nausea, vomiting, and dizziness. Vital signs reviewed and stable. General: non toxic, no distress, appears at stated age Derm: warm, dry Head: atraumatic, normocephalic, symmetric Eyes: EOMI, no lid lag, anicteric sclera Mouth: no lip lesion, mucus membranes moist Cardiovascular: S1S2 reg, no murmur, positive posterior tibial pulse bilateral, Lungs: CTA bilateral, no rhonchi, no rales , no accessory muscle use Abdominal: soft, nontender to palpation, no guarding, no appreciable organomegaly Ext: no gross muscle atrophy, no edema, no contractures Neuro: CN II-XI grossly intact, no focal neuro deficits Psych: Alert, oriented, appropriate affect A total of 25 minutes of time were spent preparing this complex discharge summary . Pertinent Studies: Echocardiogram ejection fraction 55-60%, within normal limits. Patient Condition at Discharge: Good Plan - Discharge Summary New Discharge Prescriptions: New Joes Carbonate 300 mg PO TID #42 cap Discontinued QUEtiapine [SEROquel] 100 mg PO HS #30 tab Loxapine Succinate [Loxapine] 25 mg PO HS FLUoxetine HCL [PROzac] 10 mg PO DAILY No Action Divalproex ER [Depakote ER] 1,500 mg PO HS #90 tab.er.24h Discharge Medication List Divalproex ER [Depakote ER] 1,500 mg PO HS #90 tab.er.24h 10/02/16 [Rx] Joes Carbonate 300 mg PO TID #42 cap 06/07/17 [Rx] Follow up Appointment(s)/Referral(s): [facility] [Outside] - 06/08/17 (Pt to complete walk-in intake at [facility] within 48 hours of hospital discharge. Hours: Mon, Wed, , Wed- 8:30am-3pm Tues 10:30am-5pm) Prabha Carrillo MD [STAFF PHYSICIAN] - 1 Week (Patient states that he will make appointment when he gets home - (office closed for lunch at time of discharge )) Kunal Castro DO [Medical Doctor] - 06/14/17 4:00 pm (Dr Castro ) Patient Instructions/Handouts: Joes (By mouth), Bradycardia (DC) Activity/Diet/Wound Care/Special Instructions: regular diet activity as tolerated Discharge Disposition: HOME SELF-CARE
== END 2017-06-07 14:45 | disposition home or self-care (01) ==
LOC: 5MS5E 09:54 → INTOOBSV 09:54
PROVIDERS: ADMIT Internal Medicine; ATTEND Internal Medicine
DX: R55 Syncope and collapse (principal); R45.851 Suicidal ideations; I95.9 Hypotension, unspecified; R00.1 Bradycardia, unspecified; F31.9 Bipolar disorder, unspecified; F20.9 Schizophrenia, unspecified; F17.200 Nicotine dependence, unspecified, uncomplicated; F41.9 Anxiety disorder, unspecified; F10.11 Alcohol abuse, in remission; Z79.899 Other long term (current) drug therapy; Z88.5 Allergy status to narcotic agent; Z88.8 Allergy status to other drugs, medicaments and biological substances; W01.198A Fall on same level from slipping, tripping and stumbling with subsequent striking against other object, initial encounter; Y92.238 Other place in hospital as the place of occurrence of the external cause; Z86.14 Personal history of Methicillin resistant Staphylococcus aureus infection
CPT/HCPCS: 96360; 96361 ×2; 93306; 80053 ×2; 80178; 83735; 84100; 85025; G0379; G0378 ×3

== ENCOUNTER → 2018-02-04 | Outpatient (CLI) | payer OTHER | END | disposition home or self-care (01) | LOC: LABWHC1 16:28 | PROVIDERS: ATTEND Psychiatry & Neurology Psychiatry | DX: F31.31 Bipolar disorder, current episode depressed, mild (principal) | CPT/HCPCS: 36415; 84520 ==

== ENCOUNTER → 2018-02-14 | Outpatient (CLI) | payer OTHER ==
[2018-02-14 11:46] LABS: Blood Urea Nitrogen 10 mg/dL (9-20); Lithium 0.3 mmol/L
== END | disposition home or self-care (01) ==
LOC: LABWHC1 11:13
PROVIDERS: ATTEND Psychiatry & Neurology Psychiatry
DX: F31.31 Bipolar disorder, current episode depressed, mild (principal)
CPT/HCPCS: 36415; 80178; 82565; 84443; 84520